=== PATIENT | female | born 1960 | race Hispanic/Latino ===

== ENCOUNTER 2017-11-14 02:34 | Inpatient (IN) | payer MEDICARE ==
[~2017-11-14] VITALS: Ht 157.5 cm; Wt 94.0 kg
[~2017-11-14 02:34] MED LIST: ALBU8.5H8 IH; AZIT500T4 PO; BENZ200C53 PO; BUSP5TAB3 PO; CYCL30DR OP; FLUT1DIS5 IH; FOSI20TA3 PO; GLIP5TAB11 PO; HYDR25TA PO; MAGN1TAB2 PO; METF10004 PO; PANT40TA25 PO; PRED50TA2 PO
[2017-11-14] MEDS ORDERED: METHYLPREDNISOLONE SOD SUCC 125MG/2ML VIAL ONE ×2 (03:44→04:29)
[2017-11-14 03:52] LABS: BASOPHILS % (AUTO) 0.3 % (0.0-5.0); HEMATOCRIT 35.7 % (36-48); LYMPHOCYTES % (AUTO) 8.8 % (21.0-51.0); MEAN CORPUSCULAR HEMOGLOBIN 28.9 pg (27.0-33.0); MEAN CORPUSCULAR HGB CONC 34.3 g/dL (32.0-36.0); MEAN CORPUSCULAR VOLUME 84.5 fL (79-99); MONOCYTES % (AUTO) 2.6 % (3.0-13.0); NEUTROPHILS % (AUTO) 88.3 % (40.0-77.0); PLATELET COUNT (AUTO) 287 K/uL (130-400); RED BLOOD CELL COUNT(AUTO) 4.22 MIL/uL (4.00-5.50); RED CELL DISTRIBUTION WIDTH 14.8 % (11.0-15.5); WHITE BLOOD COUNT (AUTO) 10.2 K/uL (4.8-10.8)
[2017-11-14] MEDS ORDERED: ALBUTEROL SULFATE 0.083% 2.5 MG/3 ML INH IH ONE (03:53)
[2017-11-14 03:54] LABS: RAPID GROUP A STREP NEGATIVE (NEGATIVE)
[2017-11-14 04:01] LABS: INR 0.85 (0.85-1.15); PARTIAL THROMBOPLASTIN TIME 18.9 SEC (26.3-35.5)
[2017-11-14] MEDS ORDERED: ACETAMINOPHEN-CODEINE 300/30MG TAB ONE (04:15)
[2017-11-14 04:21] LABS: ALBUMIN 3.4 g/dL (3.5-5.0); BILIRUBIN,TOTAL 0.4 mg/dL (0.2-1.0); CREATININE 0.8 mg/dL (0.5-1.5); POTASSIUM 4.6 mmol/L (3.5-5.1)
[2017-11-14] MEDS ORDERED: INSULIN HUMULIN R 100 UNIT/ML 3ML ONE (04:28)
[2017-11-14 04:53] LABS: B-TYPE NATRIURETIC PEPTIDE 22 pg/mL (0-100)
[2017-11-14 05:06] LABS: ABG BASE EXCESS -2.5 mmol/L (-2.0-3.0); ABG HCO3 21.3 mmol/L (21.0-28.0); ABG PCO2 34 mmHg (32-45)
[2017-11-14] MEDS ORDERED: LEVOFLOXACIN 500 MG/D5W 100 ML 100 ML ONE (05:21)
[2017-11-14] MEDS ORDERED: FAMOTIDINE 20MG TAB 20 MG TAB ONE (05:22)
[2017-11-14 05:50] VITALS: BP 126/67
[2017-11-14] MEDS ORDERED: GLIP5TAB11 PO (06:29)
[2017-11-14] MEDS ORDERED: [UNRECOGNIZED DRUG - CODE] PO (06:29)
[2017-11-14] MEDS ORDERED: LIDOCAINE HCL-MPF 1% 2ML VIAL IVP PRN (06:30)
[2017-11-14] MEDS ORDERED: ACETAMINOPHEN 325 MG TAB PO PRN (06:30)
[2017-11-14] MEDS ORDERED: POTASSIUM CHLORIDE 20 MEQ ERTAB PO PRN (06:30)
[2017-11-14] MEDS ORDERED: HYDRALAZINE HCL 20 MG/ML VIAL IV PRN (06:30)
[2017-11-14] MEDS ORDERED: POTASSIUM CHLORIDE 10% ELIXIR 20 MEQ/15 ML UDCUP PO PRN (06:30)
[2017-11-14] MEDS ORDERED: POTASSIUM CHLORIDE 20MEQ/100ML 100 ML IV PRN (06:30)
[2017-11-14] MEDS ORDERED: ONDANSETRON HCL 4 MG/2 ML VIAL IV PRN (06:30)
[2017-11-14 06:52] LABS: APPEARANCE,URINE Clear (CLEAR); BILIRUBIN,URINE Negative (NEGATIVE); COLOR,URINE Yellow (YELLOW); GLUCOSE, URINE (UA) >=1000 mg/dL (NEGATIVE); KETONES,URINE 15 mg/dL (NEGATIVE); LEUKOCYTE ESTERASE ,URINE Negative (NEGATIVE); NITRATE,URINE Negative (NEGATIVE); OCCULT BLOOD,URINE Negative (NEGATIVE); PROTEIN,URINE Negative (NEGATIVE); UROBILINOGEN,URINE 0.2 mg/dL (0.2-1.0)
[2017-11-14] MEDS: INSULIN HUMULIN R 100 UNIT/ML 3ML SQ SCH ×4 (06:53→21:54)
[2017-11-14 06:56] LABS: HCG,QUAL RESULT NEGATIVE (NEGATIVE)
[2017-11-14 07:16] LABS: BACTERIA,URINE None Seen /HPF (None Seen); RBC,URINE None Seen /HPF (0-1); WBC,URINE None Seen /HPF (0-1)
[2017-11-14 07:52] VITALS: BP 144/85
[2017-11-14] MEDS: FAMOTIDINE 20MG TAB 20 MG TAB PO SCH ×2 (09:30→21:38)
[2017-11-14] MEDS: ENOXAPARIN SODIUM 40 MG/0.4 ML SYRINGE SQ SCH (09:31)
[2017-11-14] MEDS ORDERED: INSULIN DETEMIR 10ML 100 UNIT/ML 10ML SQ SCH (09:45)
[2017-11-14] MEDS: LISINOPRIL 20 MG TABLET PO SCH (10:54)
[2017-11-14 11:31] VITALS: BP 131/76
[2017-11-14] MEDS: METHYLPREDNISOLONE SOD SUCC 125MG/2ML VIAL IV SCH ×2 (11:40→21:55)
[2017-11-14] MEDS: IPRATROPIUM/ALBUTEROL SULFATE 3 ML SOLUTION IH SCH ×3 (12:41→23:07)
[2017-11-14] MEDS: BUSPIRONE HCL 5 MG TABLET PO SCH ×2 (13:59→21:38)
[2017-11-14 16:12] VITALS: BP 112/83
[2017-11-14] MEDS: METFORMIN HCL 500 MG TABLET PO SCH (16:31)
[2017-11-14 20:00] VITALS: BP 141/82
[2017-11-14] MEDS: GUAIFENESIN-DM 200/20 MG 10 ML PO PRN (21:38)
[2017-11-14] MEDS: BENZONATATE 100 MG CAPSULE PO PRN (21:38)
[2017-11-14] MEDS: INSULIN GLARGINE 100 UNITS/ML 10 ML VIAL SQ SCH (21:54)
[2017-11-14 23:38] VITALS: BP 121/78
[2017-11-15] MEDS ORDERED: DEXTROSE 50%-WATER 50 ML DISP.SYRIN IV PRN (03:30)
[2017-11-15] MEDS ORDERED: GLUCAGON 1MG KIT 1 MG ML IM PRN (03:30)
[2017-11-15 03:40] VITALS: BP 108/58
[2017-11-15] MEDS: METHYLPREDNISOLONE SOD SUCC 125MG/2ML VIAL IV SCH (03:42)
[2017-11-15 05:42] LABS: HEMATOCRIT 36.3 % (36-48); MEAN CORPUSCULAR HEMOGLOBIN 28.4 pg (27.0-33.0); MEAN CORPUSCULAR HGB CONC 33.8 g/dL (32.0-36.0); PLATELET COUNT (AUTO) 282 K/uL (130-400); RED BLOOD CELL COUNT(AUTO) 4.32 MIL/uL (4.00-5.50); RED CELL DISTRIBUTION WIDTH 14.4 % (11.0-15.5)
[2017-11-15 05:59] LABS: HEMOGLOBIN A1C 11.2 % (4.0-6.0)
[2017-11-15] MEDS: LEVOFLOXACIN 500 MG/D5W 100 ML 100 ML IV SCH (06:04)
[2017-11-15] MEDS: BENZONATATE 100 MG CAPSULE PO PRN (06:05)
[2017-11-15] MEDS: GUAIFENESIN-DM 200/20 MG 10 ML PO PRN (06:05)
[2017-11-15] MEDS: IPRATROPIUM/ALBUTEROL SULFATE 3 ML SOLUTION IH SCH ×3 (06:11→17:49)
[2017-11-15] MEDS: INSULIN GLARGINE 100 UNITS/ML 10 ML VIAL SQ SCH ×2 (06:12→21:24)
[2017-11-15 06:14] LABS: CREATININE 0.9 mg/dL (0.5-1.5); POTASSIUM 4.5 mmol/L (3.5-5.1); THYROID STIMULATING HORMONE 0.32 uIU/mL (0.36-3.74)
[2017-11-15] MEDS: INSULIN HUMULIN R 100 UNIT/ML 3ML SQ SCH ×4 (06:14→21:24)
[2017-11-15 08:00] VITALS: BP 156/87
[2017-11-15] MEDS: GLIPIZIDE 5 MG TABLET PO SCH (08:43)
[2017-11-15] MEDS: METFORMIN HCL 500 MG TABLET PO SCH ×2 (08:43→16:38)
[2017-11-15] MEDS: FAMOTIDINE 20MG TAB 20 MG TAB PO SCH ×2 (08:44→20:10)
[2017-11-15] MEDS: LISINOPRIL 20 MG TABLET PO SCH (08:44)
[2017-11-15] MEDS: BUSPIRONE HCL 5 MG TABLET PO SCH ×3 (08:44→20:10)
[2017-11-15] MEDS: ENOXAPARIN SODIUM 40 MG/0.4 ML SYRINGE SQ SCH (08:45)
[2017-11-15 11:00] VITALS: BP 128/80
[2017-11-15] MEDS: ACETAMINOPHEN 325 MG TAB PO PRN (14:23)
[2017-11-15 16:00] VITALS: BP 133/82
[2017-11-15 19:45] VITALS: BP 135/90
[2017-11-15] MEDS: PREDNISONE 20 MG TABLET PO SCH (20:10)
[2017-11-15] MEDS ORDERED: INSULIN GLARGINE 100 UNITS/ML 10 ML VIAL SQ ONE (21:23)
[2017-11-15 23:35] VITALS: BP 104/74
[2017-11-16] MEDS: IPRATROPIUM/ALBUTEROL SULFATE 3 ML SOLUTION IH SCH ×6 (00:17→23:10)
[2017-11-16 02:40] VITALS: BP 125/88
[2017-11-16] MEDS: BENZONATATE 100 MG CAPSULE PO PRN ×2 (02:46→20:22)
[2017-11-16] MEDS: ACETAMINOPHEN 325 MG TAB PO PRN (02:46)
[2017-11-16] MEDS: GUAIFENESIN-DM 200/20 MG 10 ML PO PRN ×2 (02:46→20:32)
[2017-11-16] MEDS: LEVOFLOXACIN 500 MG/D5W 100 ML 100 ML IV SCH (06:15)
[2017-11-16] MEDS: INSULIN GLARGINE 100 UNITS/ML 10 ML VIAL SQ SCH ×2 (06:20→22:42)
[2017-11-16] MEDS: INSULIN HUMULIN R 100 UNIT/ML 3ML SQ SCH ×4 (06:21→22:43)
[2017-11-16 08:00] VITALS: BP 138/95
[2017-11-16] MEDS: ENOXAPARIN SODIUM 40 MG/0.4 ML SYRINGE SQ SCH (09:42)
[2017-11-16] MEDS: BUSPIRONE HCL 5 MG TABLET PO SCH ×3 (09:43→20:22)
[2017-11-16] MEDS: FAMOTIDINE 20MG TAB 20 MG TAB PO SCH ×2 (09:43→20:22)
[2017-11-16] MEDS: METFORMIN HCL 500 MG TABLET PO SCH ×2 (09:43→16:53)
[2017-11-16] MEDS: LISINOPRIL 20 MG TABLET PO SCH (09:43)
[2017-11-16] MEDS: GLIPIZIDE 5 MG TABLET PO SCH (09:43)
[2017-11-16] MEDS: PREDNISONE 20 MG TABLET PO SCH (09:43)
[2017-11-16] MEDS: METHYLPREDNISOLONE SOD SUCC 125MG/2ML VIAL IVP SCH ×2 (11:07→20:32)
[2017-11-16 11:45] VITALS: BP 133/78
[2017-11-16] MEDS ORDERED: IOPAMIDOL-370 100 ML VIAL IV ONE (12:00)
[2017-11-16 15:36] VITALS: BP 132/70
[2017-11-16] MEDS ORDERED: BUDESONIDE 0.5 MG/2 ML INH IH ONE (19:08)
[2017-11-16] MEDS: BUDESONIDE 0.5 MG/2 ML INH IH SCH (19:11)
[2017-11-16 19:48] VITALS: BP 123/86
[2017-11-16 23:20] VITALS: BP 139/76
[2017-11-17] MEDS: ACETAMINOPHEN 325 MG TAB PO PRN (00:28)
[2017-11-17] MEDS: METHYLPREDNISOLONE SOD SUCC 125MG/2ML VIAL IVP SCH (02:49)
[2017-11-17 04:08] VITALS: BP 140/82
[2017-11-17] MEDS: LEVOFLOXACIN 500 MG/D5W 100 ML 100 ML IV SCH (05:37)
[2017-11-17 05:49] LABS: POTASSIUM 4.1 mmol/L (3.5-5.1)
[2017-11-17] MEDS: INSULIN HUMULIN R 100 UNIT/ML 3ML SQ SCH (06:51)
[2017-11-17] MEDS: INSULIN GLARGINE 100 UNITS/ML 10 ML VIAL SQ SCH (06:52)
[2017-11-17] MEDS: BUDESONIDE 0.5 MG/2 ML INH IH SCH (06:56)
[2017-11-17] MEDS: IPRATROPIUM/ALBUTEROL SULFATE 3 ML SOLUTION IH SCH ×2 (06:56→11:52)
[2017-11-17 08:00] VITALS: BP 154/76
[2017-11-17] MEDS: GLIPIZIDE 5 MG TABLET PO SCH (09:33)
[2017-11-17] MEDS: METFORMIN HCL 500 MG TABLET PO SCH (09:33)
[2017-11-17] MEDS: BUSPIRONE HCL 5 MG TABLET PO SCH (09:33)
[2017-11-17] MEDS: LISINOPRIL 20 MG TABLET PO SCH (09:34)
[2017-11-17] MEDS: ENOXAPARIN SODIUM 40 MG/0.4 ML SYRINGE SQ SCH (09:34)
[2017-11-17] MEDS: FAMOTIDINE 20MG TAB 20 MG TAB PO SCH (09:34)
[2017-11-17] MEDS ORDERED: METH4TAB3 PO (10:40)
[2017-11-17 11:34] VITALS: BP 150/78
== END 2017-11-17 13:35 | disposition home or self-care (01) | DRG 202 ==
LOC: EDH 02:34 → OBSVTOIN 04:31 → EDHIP 04:31 → 4BH 05:26
PROVIDERS: ADMIT Internal Medicine; ATTEND Internal Medicine
DX: J45.901 Unspecified asthma with (acute) exacerbation (principal); J44.1 Chronic obstructive pulmonary disease with (acute) exacerbation; E11.65 Type 2 diabetes mellitus with hyperglycemia; E78.5 Hyperlipidemia, unspecified; I10 Essential (primary) hypertension; M19.90 Unspecified osteoarthritis, unspecified site; Z87.891 Personal history of nicotine dependence; Z90.49 Acquired absence of other specified parts of digestive tract; Z88.2 Allergy status to sulfonamides; Z88.8 Allergy status to other drugs, medicaments and biological substances
CPT/HCPCS: 36415; 36600; 71045; 71275; 80048; 80053; 81001; 81025; 82803; 82947; 82948; 83036; 83605; 83880; 84443; 84484; 85025; 85027; 85610; 85730; 87804; 87880; 93005; 94640; 94644; 94664; J1650; J1815; J1956; J2930; Q9967

== ENCOUNTER 2018-09-03 14:27 | Observation (INO) | payer MEDICARE ==
[~2018-09-03] VITALS: Ht 157.5 cm; Wt 96.4 kg
[~2018-09-03 14:27] MED LIST changes: -AZIT500T4 PO; -FOSI20TA3 PO; +FOSI20TA66 PO; +METF-446 PO; -METF10004 PO; +METH4TAB3 PO; -PRED50TA2 PO
[2018-09-03] MEDS ORDERED: ASPIRIN 325 MG TABLET ONE (14:57)
[2018-09-03] MEDS ORDERED: ONDANSETRON HCL 4 MG/2 ML VIAL ONE (14:57)
[2018-09-03] MEDS ORDERED: MORPHINE SULFATE 4 MG/1ML SYG ONE (14:58)
[2018-09-03] MEDS ORDERED: SODIUM CHLORIDE 0.9% 1000ML 1,000 ML IV ONE (14:58)
[2018-09-03 15:18] LABS: BASOPHILS % (AUTO) 0.4 % (0.0-5.0); EOSINOPHILS % (AUTO) 0.6 % (0.0-8.0); HEMATOCRIT 37.3 % (36-48); LYMPHOCYTES % (AUTO) 24.8 % (21.0-51.0); MEAN CORPUSCULAR HEMOGLOBIN 27.6 pg (27.0-33.0); MEAN CORPUSCULAR HGB CONC 32.8 g/dL (32.0-36.0); MEAN CORPUSCULAR VOLUME 84.1 fL (79-99); MONOCYTES % (AUTO) 5.6 % (3.0-13.0); NEUTROPHILS % (AUTO) 68.6 % (40.0-77.0); NUCLEATED RED BLOOD CELLS 0.1 % (0.0-0.19); PLATELET COUNT (AUTO) 251 K/uL (130-400); RED BLOOD CELL COUNT(AUTO) 4.44 MIL/uL (4.00-5.50); RED CELL DISTRIBUTION WIDTH 13.8 % (11.0-15.5); WHITE BLOOD COUNT (AUTO) 11.3 K/uL (4.8-10.8)
[2018-09-03 15:26] LABS: CREATININE 0.7 mg/dL (0.5-1.5); POTASSIUM 3.2 mmol/L (3.5-5.1)
[2018-09-03 15:27] LABS: INR 0.88 (0.85-1.15); PARTIAL THROMBOPLASTIN TIME 24.3 SEC (26.3-35.5); PROTHROMBIN TIME 9.3 SEC (9.6-11.6)
[2018-09-03 15:31] LABS: ALBUMIN 3.4 g/dL (3.5-5.0); BILIRUBIN,TOTAL 0.2 mg/dL (0.2-1.0); TOTAL PROTEIN, SERUM 6.8 g/dL (6.0-8.3)
[2018-09-03 15:35] LABS: APPEARANCE,URINE Clear (CLEAR); BILIRUBIN,URINE Negative (NEGATIVE); COLOR,URINE Yellow (YELLOW); GLUCOSE, URINE (UA) Negative (NEGATIVE); KETONES,URINE Negative (NEGATIVE); LEUKOCYTE ESTERASE ,URINE Negative (NEGATIVE); NITRATE,URINE Negative (NEGATIVE); OCCULT BLOOD,URINE Negative (NEGATIVE); PROTEIN,URINE Negative (NEGATIVE); UROBILINOGEN,URINE 0.2 mg/dL (0.2-1.0)
[2018-09-03] MEDS ORDERED: IOHEXOL 350 MG/ML 100ML INFUS..BTL IV ONE (16:11)
[2018-09-03] MEDS ORDERED: LACTULOSE 20 GM/30 ML UDCUP PO PRN (16:30)
[2018-09-03] MEDS: NITROGLYCERIN 1GM/1 INCH PACKET TD SCH (16:30)
[2018-09-03] MEDS ORDERED: HYDRALAZINE HCL 20 MG/ML VIAL IV PRN ×2 (16:30→16:45)
[2018-09-03] MEDS ORDERED: ACETAMINOPHEN 325 MG TAB PO PRN (16:30)
[2018-09-03] MEDS ORDERED: ONDANSETRON HCL 4 MG/2 ML VIAL IV PRN (16:30)
[2018-09-03] MEDS ORDERED: CLOPIDOGREL BISULFATE 300 MG TAB ONE (17:54)
[2018-09-03] MEDS ORDERED: CLOPIDOGREL BISULFATE 300 MG TAB PO ONE (18:00)
[2018-09-03] MEDS ORDERED: NITROGLYCERIN 1GM/1 INCH PACKET TD ONE (18:38)
[2018-09-03 19:07] LABS: CREATINE KINASE, TOTAL 64 U/L (21-232); MYOGLOBIN 41 ng/mL (10-92); TROPONIN I < 0.04 ng/mL (0.00-0.06)
[2018-09-03 20:56] VITALS: BP 121/71
[2018-09-03] MEDS ORDERED: METOPROLOL TARTRATE 25 MG TAB PO SCH (21:00)
[2018-09-03 23:00] VITALS: BP 103/57
[2018-09-04] MEDS: INSULIN LISPRO 100 UNIT/ML 3ML SQ SCH ×2 (00:04→06:51)
[2018-09-04] MEDS: NITROGLYCERIN 1GM/1 INCH PACKET TD SCH ×2 (00:30→08:30)
[2018-09-04 01:33] LABS: CREATINE KINASE, TOTAL 72 U/L (21-232); MYOGLOBIN 40 ng/mL (10-92); TROPONIN I < 0.04 ng/mL (0.00-0.06)
[2018-09-04] MEDS ORDERED: BENZ200C53 PO (02:11)
[2018-09-04] MEDS ORDERED: PANT40TA25 PO (02:11)
[2018-09-04 04:00] VITALS: BP 93/43
[2018-09-04 06:44] LABS: HEMOGLOBIN A1C 8.8 % (4.0-6.0)
[2018-09-04 07:47] VITALS: BP 98/63
[2018-09-04] MEDS ORDERED: PANTOPRAZOLE SODIUM 40 MG TABLET.DR PO SCH (09:00)
[2018-09-04] MEDS ORDERED: CLOPIDOGREL BISULFATE 75 MG TAB PO SCH (09:00)
[2018-09-04] MEDS ORDERED: ASPIRIN 325 MG TABLET PO SCH (09:00)
[2018-09-04] MEDS ORDERED: ENOXAPARIN SODIUM 40 MG/0.4 ML SYRINGE SQ SCH (09:00)
[2018-09-04 09:20] LABS: CREATINE KINASE, TOTAL 78 U/L (21-232); MYOGLOBIN 37 ng/mL (10-92); TROPONIN I < 0.04 ng/mL (0.00-0.06)
[2018-09-04 09:57] LABS: THYROID STIMULATING HORMONE 1.91 uIU/mL (0.36-3.74)
[2018-09-04 11:29] VITALS: BP 120/57
== END 2018-09-04 16:52 | disposition home or self-care (01) ==
LOC: EDH 14:27 → EDHIP 16:27 → 2DH 20:18
PROVIDERS: ADMIT Internal Medicine; ATTEND Internal Medicine
DX: E04.9 Nontoxic goiter, unspecified (principal); E11.9 Type 2 diabetes mellitus without complications; E78.2 Mixed hyperlipidemia; I10 Essential (primary) hypertension; J44.9 Chronic obstructive pulmonary disease, unspecified; J45.909 Unspecified asthma, uncomplicated; Z82.3 Family history of stroke; Z82.0 Family history of epilepsy and other diseases of the nervous system; Z82.49 Family history of ischemic heart disease and other diseases of the circulatory system; Z82.5 Family history of asthma and other chronic lower respiratory diseases; Z83.3 Family history of diabetes mellitus; Z87.891 Personal history of nicotine dependence; Z80.8 Family history of malignant neoplasm of other organs or systems; Z79.01 Long term (current) use of anticoagulants
CPT/HCPCS: 36415 ×2; 70360; 71045; 71275; 76536; 80053; 81003; 82550 ×4; 82948 ×3; 83036; 83874 ×3; 83880; 84439; 84443; 84481; 84484 ×4; 85025; 85378; 85610; 85730; 93005 ×4; 96372; 99284; A4600; G0378 ×24; J1650; J2270; J2405; J7030; Q9967

== ENCOUNTER → 2019-05-02 | Outpatient (CLI) | payer MEDICARE ==
[~2019-05-02] MED LIST changes: -ALBU8.5H8 IH; -BUSP5TAB3 PO; -CYCL30DR OP; -MAGN1TAB2 PO; -METH4TAB3 PO
--- NOTE | 2019-05-02 23:56 | NUR ---
PATIENT CURRENT MEDICATIONS LIST FOSINOPRIL 20 MG, MONTELUKAST 10MG, CYCLOBENZAPRINE 10 MG, METFORMIN 1000 MG, CETIRIZINE HCL 10MG, PANTOPRAZOLE 40 MG, HYDROCHLOROTHIAZIDE 25 MG. Addendum: 05/03/19 at 0001 by MAU REGALADOLT Amended: Links added.
== END | disposition home or self-care (01) ==
LOC: SLP 20:17
PROVIDERS: ATTEND Internal Medicine
DX: G47.33 Obstructive sleep apnea (adult) (pediatric) (principal); E66.9 Obesity, unspecified; Z68.37 Body mass index [BMI] 37.0-37.9, adult; I10 Essential (primary) hypertension
CPT/HCPCS: 95810

== ENCOUNTER 2019-06-05 21:46 | Emergency (ER) | payer MEDICARE ==
[2019-06-05] MEDS ORDERED: SODIUM CHLORIDE 0.9% 1000ML 1,000 ML IV ONE (22:07)
[2019-06-05] MEDS ORDERED: ONDANSETRON HCL 4 MG/2 ML VIAL ONE (22:08)
[2019-06-05 22:10] LABS: BASOPHILS % (AUTO) 0.4 % (0.0-5.0); EOSINOPHILS % (AUTO) 0.4 % (0.0-8.0); HEMATOCRIT 36.8 % (36-48); LYMPHOCYTES % (AUTO) 18.6 % (21.0-51.0); MEAN CORPUSCULAR HEMOGLOBIN 28.8 pg (27.0-33.0); MEAN CORPUSCULAR HGB CONC 34.1 g/dL (32.0-36.0); MEAN CORPUSCULAR VOLUME 84.6 fL (79-99); MONOCYTES % (AUTO) 5.4 % (3.0-13.0); NEUTROPHILS % (AUTO) 75.2 % (40.0-77.0); PLATELET COUNT (AUTO) 305 K/uL (130-400); RED BLOOD CELL COUNT(AUTO) 4.35 MIL/uL (4.00-5.50); RED CELL DISTRIBUTION WIDTH 14.4 % (11.0-15.5)
[2019-06-05 22:18] LABS: CREATININE 0.9 mg/dL (0.5-1.5); MAGNESIUM 1.3 mg/dL (1.80-2.40); POTASSIUM 3.3 mmol/L (3.5-5.1)
[2019-06-05 22:41] LABS: APPEARANCE,URINE Clear (CLEAR); BILIRUBIN,URINE Negative (NEGATIVE); COLOR,URINE Yellow (YELLOW); GLUCOSE, URINE (UA) Negative (NEGATIVE); KETONES,URINE Negative (NEGATIVE); LEUKOCYTE ESTERASE ,URINE Trace (NEGATIVE); NITRATE,URINE Negative (NEGATIVE); OCCULT BLOOD,URINE Negative (NEGATIVE); PH,URINE 5.5 (5.0-8.0); PROTEIN,URINE Negative (NEGATIVE); UROBILINOGEN,URINE 0.2 mg/dL (0.2-1.0)
[2019-06-05 23:11] LABS: BACTERIA,URINE None Seen /HPF (None Seen); MUCUS,URINE Few LPF (None Seen); RBC,URINE None Seen /HPF (0-1); SQUAMOUS EPITHELIAL CELL,UR Few /HPF (0-2); WBC,URINE None Seen /HPF (0-1)
== END 2019-06-06 00:02 | disposition home or self-care (01) ==
LOC: EDH 21:46
DX: E11.649 Type 2 diabetes mellitus with hypoglycemia without coma (principal); T38.3X5A Adverse effect of insulin and oral hypoglycemic [antidiabetic] drugs, initial encounter; R19.7 Diarrhea, unspecified; I10 Essential (primary) hypertension; J44.9 Chronic obstructive pulmonary disease, unspecified; Z90.49 Acquired absence of other specified parts of digestive tract; Z87.891 Personal history of nicotine dependence; Z88.2 Allergy status to sulfonamides; Z88.1 Allergy status to other antibiotic agents; Z88.8 Allergy status to other drugs, medicaments and biological substances; Y92.89 Other specified places as the place of occurrence of the external cause
CPT/HCPCS: 36415; 80048; 81001; 82948 ×2; 83735; 85025; 96361; 96374; 99285; J2405; J7030

== ENCOUNTER → 2021-02-18 | Outpatient (CLI) | payer MEDICARE ==
[~2021-02-18] VITALS: Ht 157.5 cm; Wt 91.6 kg
[~2021-02-18] MED LIST changes: -PANT40TA25 PO; +PANT40TA55 PO; +REGADENOSON 0.4 MG/5 ML PF SYG IVP SCH
== END | disposition home or self-care (01) ==
LOC: SHCH 08:47
PROVIDERS: ATTEND Internal Medicine Cardiovascular Disease
DX: R07.9 Chest pain, unspecified (principal); R06.09 Other forms of dyspnea
CPT/HCPCS: 78452; 93017; 96374; A9500 ×2

== ENCOUNTER → 2023-01-31 | Outpatient (CLI) | payer MEDICARE ==
[~2023-01-31] MED LIST changes: +GADOTERATE MEGLUMINE 10 MMOL/20 ML VIAL IV ONE; -REGADENOSON 0.4 MG/5 ML PF SYG IVP SCH
== END | disposition home or self-care (01) ==
LOC: RAH 08:01
PROVIDERS: ATTEND Internal Medicine Gastroenterology
DX: N28.1 Cyst of kidney, acquired (principal); R16.0 Hepatomegaly, not elsewhere classified; R93.2 Abnormal findings on diagnostic imaging of liver and biliary tract
CPT/HCPCS: 74181; A9575

== ENCOUNTER → 2024-08-13 | Outpatient (CLI) | payer MEDICARE ==
[~2024-08-13] MED LIST changes: -GADOTERATE MEGLUMINE 10 MMOL/20 ML VIAL IV ONE; -GLIP5TAB11 PO; +GLIP5TAB15 PO
--- NOTE | 2024-08-13 10:38 | HMCIMG ---
CLAVICLE RIGHT HISTORY: Arthralgia COMPARISON: None TECHNIQUE: 2 images of right clavicle were obtained. FINDINGS: There is no acute displaced fracture or dislocation. There appears to be osteophyte at the undersurface of the acromion. Acromioclavicular joint space narrowing is also seen. Degenerative changes are seen. IMPRESSION: 1. Findings as described above.
--- NOTE | 2024-08-13 10:39 | HMCIMG ---
CHEST 2VWS HISTORY: Chest pain COMPARISON: None FINDINGS: Frontal and lateral projections of the chest were obtained. There is no acute pulmonary infiltrates or failure. The heart is not enlarged. Prominent interstitial markings are seen. Degenerative changes are seen of the thoracolumbar spine. IMPRESSION: 1. No acute pulmonary infiltrates.
== END | disposition home or self-care (01) ==
LOC: RAH 08:55
PROVIDERS: ATTEND Family Medicine
DX: J84.9 Interstitial pulmonary disease, unspecified (principal); M19.011 Primary osteoarthritis, right shoulder; R07.9 Chest pain, unspecified; M25.511 Pain in right shoulder; M47.815 Spondylosis without myelopathy or radiculopathy, thoracolumbar region
CPT/HCPCS: 71046; 73000